=== PATIENT | female | born 1990 | race Caucasian/White ===

== ENCOUNTER 2024-11-10 10:32 | Emergency (ER) | payer OTHER, SELFPAY ==
[2024-11-10 10:35] VITALS: BP 111/75
--- NOTE | 2024-11-10 11:32 | ED.GENMED ---
History of Present Illness
General
Chief Complaint: Abdominal Pain
Source: patient
Exam Limitations: none
Time Seen by Provider: 11/10/24 11:21
Nursing documentation reviewed up to this point in time: agreed with
History of Present Illness
History of Present Illness:
see MDM
Past History
Past History
ED Past Medical History: Hypothyroidism and Other (gastritis)
Social History
Tobacco: Non-smoker
Alcohol: None
Drug: None
Personal: Single
Living: with family
Review of Systems
Review of Systems
Allergies reviewed?: Yes
All Other Systems: Not applicable
Phy Exam
Physical Exam
Physical Exam:
GENERAL: Alert , in no apparent distress
EYE: pupils equal and reactive
NECK: Supple
ENT: o/p clr, mmm.
CARDIAC: Regular rate and rhythm .
LUNGS: Clear breath sounds bilaterally, no acute respiratory distress, no wheezes/rales/rhonchi
ABDOMEN: Soft, mild epigastric tendernes, neg andujar's sign no r/g, no cvat, normal bowel sounds
NEUROLOGICAL: Alert and oriented, no focal neuro deficits
SKIN: Warm and dry, skin intact.
MUSCULOSKELETAL: No edema, well perfused. neg wong's sign
PSYCH: Normal and appropriate interaction.
Course
Orders/Labs/Results
Orders:
Orders
11/10/24 11:31
Famotidine [Pepcid] 20 mg IV NOW STA
Mag Hydrox/Al Hydrox/Simeth [Maalox] 30 ml Phenobarb/Hyoscy/Atropine/Scop [] 10 ml Viscous Lidocaine 2% [Xylocaine Viscous Cup] 10 ml PO NOW
US Abdomen Complete/Upper Urgent
Comment:
Reason For Exam: upper abd pain x 1 mo, h/o gastritis
11/10/24 11:32
Test Result ONCE
11/10/24 11:35
Mag Hydrox/Al Hydrox/Simeth [Maalox] 30 ml .ROUTE .STK-MED ONE
Phenobarb/Hyoscy/Atropine/Scop [] 10 ml .ROUTE .STK-MED ONE
Viscous Lidocaine 2% [Xylocaine Viscous Cup] 15 ml .ROUTE .STK-MED ONE
11/10/24 11:36
Complete Blood Count/With Diff Urgent
Comprehensive Metabolic Panel Urgent
HCG, Serum Qualitative Screen Urgent
Lipase Urgent
11/10/24 11:36
11/10/24 11:36
Vital Signs
Initial and Last Documented VS:
Initial Vital Signs
Temp Pulse Resp BP Pulse Ox
36.9 C 77 18 111/75 98
11/10/24 10:35 11/10/24 10:35 11/10/24 10:35 11/10/24 10:35 11/10/24 10:35
Last Documented Vital Signs
Temp Pulse Resp BP Pulse Ox
36.9 C 77 18 111/75 98
11/10/24 10:35 11/10/24 10:35 11/10/24 10:35 11/10/24 10:35 11/10/24 11:33
MDM/Problems Addressed
Differential Diagnosis Includes:
see MDM
MDM/Problems Addressed:
Note:
CHIEF COMPLAINT(S)
- Upper abdominal pain for one month.
HISTORY OF PRESENT ILLNESS
The patient is a 34-year-old female h/o gastritis formerly on pantoprazole 40 mg daily who presents with a month-long history of upper abdominal pain. The pain does not seem to improve or worsen with food intake. The patient reports the pain
radiating to her back but denies any vomiting, diarrhea, constipation, or fever. pt stopped the pantoprazole because she didn't feel it was helping. She reports no surgical history, including no gallbladder removal, and denies any history of
gallstones. The patient last had an endoscopy, which confirmed the diagnosis of gastritis, but no ulcers were found. She expresses a pain intensity of five to six out of ten today, which was worse yesterday. pt took ibuprofen last night without
improvement. She is not currently taking aspirin,
no black stool
called PCP but appt not until 0 24
was encouraged to come get checked
SOCIAL HISTORY
The patient denies alcohol consumption.
PE:
see above
PLAN
- Administer a gastrointestinal cocktail and intravenous medication to manage symptoms.
- Perform blood work and abdominal ultrasound to evaluate for potential gallbladder or pancreatic issues.
- Consider increasing pantoprazole to twice daily pending test results.
- Recommend follow-up with a coal briquette machine operator based on test outcomes.
DIFFERENTIAL DIAGNOSIS
The Differential Diagnosis includes, in no particular order and is not limited to:
1. Gastritis
2. Peptic ulcer disease
3. Gallbladder disease
4. Pancreatitis
5. Gastroesophageal reflux disease
6. Irritable bowel syndrome
7. Functional dyspepsia
8. Hepatic disorders
9. Biliary colic
10. Esophageal spasm
34-year-old female with a history of gastritis on pantoprazole formally presents for epigastric pain over the last month its been fluctuating. She cannot really tell me whether it is worse or better with eating. She is able to eat and is not
vomiting. The pain was not feeling better on the pantoprazole so she stopped it 2 weeks ago. She was on 40 mg once a day. Patient has not had any other symptoms like chest pain, shortness of breath, weight loss, black stools. Today she decided
to come in after talking to her doctor because pain was worse last night. The doctor cannot see her until November 28. Patient looks well, she has mild epigastric tenderness, negative Andujar sign, has no respecters for ACS. Her LFTs are normal,
lipase normal and her upper abdominal ultrasound was negative. Patient was given IV Pepcid and a GI cocktail. I recommend that she bump up her pantoprazole to twice daily
*Pulse Oximetry
SaO2: 98
Oxygen Mode of Delivery: Room air
ED Attending Note
-
Portions of this chart may have been created with voice recognition software.� Occasional wrong word or��sound alike� substitutions may have occurred due to the inherent limitations of voice recognition software.
Discharge Plan
Departure
Referrals:
Tanja Woo MD [Family Provider, Internal Medicine]
Interventions
Interventions:
*Risk Screen - Suicide Last Done: 11/10/24 10:38
*General Assessment Last Done: 11/10/24 10:35
*Neglect/Abuse Screening Last Done: 11/10/24 10:35
CR-Nukyvj-Zazzybhnan Assessment Last Done: 11/10/24 11:43
Discharge Date and Time
Print Language: ERITREAN
[2024-11-10] MEDS: MAALOX 50 PO (11:36)
[2024-11-10] MEDS: PEPCID 20 MG IV (11:37)
[2024-11-10 11:43] VITALS: BMI 26.7
[2024-11-10 12:01] LABS: Hematocrit 38.2 % (37.0-47.0); Hemoglobin 13.1 g/dL (12.0-16.0); Mean Corp Hgb Conc. 34.3 g/dL (33.0-37.0); Mean Corpuscular Volume 86.6 fL (81.0-99.0); Nucleated Red Blood Cells % 0 %; Platelet Count 233 10^3/uL (130-400); Red Cell Dist. Width 11.9 % (11.5-14.5)
[2024-11-10 12:19] LABS: HCG, Serum Qualitative Screen Negative
[2024-11-10 12:25] LABS: ALT (SGPT) 14 U/L (0-35); AST (SGOT) 16 U/L (14-36); Albumin 4.4 g/dl (3.5-5.0); Alkaline Phosphatase 52 U/L (38-126); Blood Urea Nitrogen 12 mg/dl (7-17); Calcium 9.1 mg/dl (8.4-10.2); Carbon Dioxide 26 mmol/L (22-30); Chloride 105 mmol/L (98-107); Estimated Creatinine Clearance 121 ml/min; Glucose 89 mg/dl (70-99); Lipase 142 U/L (23-300); Potassium 4.4 mmol/L (3.5-5.1); Sodium 137 mmol/L (135-145); Total Protein 7.0 g/dl (6.3-8.2); eGFR > 60.00
[2024-11-10 13:30] VITALS: BP 103/64
== END 2024-11-10 13:32 | disposition home or self-care (01) ==
LOC: EMR 10:32
PROVIDERS: Physician Assistant; EMERGENCY PHYSICIAN Emergency Medicine; FAMILY PHYSICIAN Internal Medicine
DX: K29.70 Gastritis, unspecified, without bleeding (principal); E03.9 Hypothyroidism, unspecified
CPT/HCPCS: 99284; 96374; 76700; 80053; 83690; 84703; 85025